=== PATIENT | female | born 1935 | race Caucasian/White ===

== ENCOUNTER 2018-10-05 14:01 | Outpatient (CLI) | payer MEDICARE ==
[2018-10-05] MEDS ORDERED: LIDOCAINE 1%-EPI 1:100K, 20ML ONE (16:30)
[2018-10-05] MEDS ORDERED: SODIUM BICARBONATE 4.0%, 5ML ONE (16:30)
[2018-11-09] MEDS ORDERED: ATOR20TA37 PO (10:33)
[2018-11-09] MEDS ORDERED: LORA1TAB PO (10:33)
[2018-11-09] MEDS ORDERED: CITA40TA5 PO (10:33)
[2018-11-09] MEDS ORDERED: CARV3.122 PO (10:33)
[2018-11-09] MEDS ORDERED: LOSA25TA25 PO (10:49)
== END 2018-10-05 23:59 | disposition home or self-care (01) ==
LOC: MERGE 14:01 → CFH 14:01
PROVIDERS: ATTEND Family Medicine
DX: C50.912 Malignant neoplasm of unspecified site of left female breast (principal)
CPT/HCPCS: 19083; 19084; 76641; 77066; 88305; 88341; 88342; 88360; G0279; J3490; 19285; 76942; 88361; 77065

== ENCOUNTER → 2018-12-08 | Outpatient (CLI) | payer MEDICARE ==
[~2018-12-08] MED LIST: ATOR20TA37 PO; CARV3.122 PO; CITA40TA5 PO; LORA1TAB PO; LOSA25TA25 PO
== END | disposition home or self-care (01) ==
LOC: PETCFH 10:44 → MERGE 12:30
PROVIDERS: ATTEND Internal Medicine Hematology & Oncology
DX: C79.51 Secondary malignant neoplasm of bone (principal); M81.0 Age-related osteoporosis without current pathological fracture; C50.812 Malignant neoplasm of overlapping sites of left female breast
CPT/HCPCS: 77080; 78306; A9503

== ENCOUNTER → 2018-12-09 | Outpatient (CLI) | payer MEDICARE | END | disposition home or self-care (01) | LOC: ROC 09:28 → MERGE 06-20 11:41 | PROVIDERS: ATTEND Radiology Radiation Oncology | DX: Z08 Encounter for follow-up examination after completed treatment for malignant neoplasm (principal); Z85.3 Personal history of malignant neoplasm of breast | CPT/HCPCS: 99214; G0463 ==

== ENCOUNTER → 2018-12-12 | Outpatient (CLI) | payer MEDICARE ==
[~2018-12-12] MED LIST changes: +OMNIPAQUE 350 MG/ML, 100ML BOTTLE ONE
== END | disposition home or self-care (01) ==
LOC: CFH 12:22
PROVIDERS: ATTEND Internal Medicine Hematology & Oncology
DX: C50.812 Malignant neoplasm of overlapping sites of left female breast (principal)
CPT/HCPCS: 71260; 74177; Q9967

== ENCOUNTER 2018-12-19 07:40 | Day surgery (SDC) | payer MEDICARE ==
[~2018-12-19] VITALS: Ht 149.9 cm; Wt 64.6 kg
[~2018-12-19 07:40] MED LIST changes: -OMNIPAQUE 350 MG/ML, 100ML BOTTLE ONE
[2018-12-19 08:43] VITALS: BP 168/71
[2018-12-19] MEDS ORDERED: SODIUM CHLORIDE 0.9% 1,000 ML IV SCH (08:48)
[2018-12-19] MEDS ORDERED: FLUMAZENIL 0.1 MG/1 ML, 5ML ONE (09:24)
[2018-12-19] MEDS ORDERED: MIDAZOLAM 1 MG/ML, 5ML ONE (09:24)
[2018-12-19] MEDS ORDERED: FENTANYL PF 100 MCG/2ML ONE (09:24)
[2018-12-19] MEDS ORDERED: NALOXONE 1 MG/ML, 2ML ONE (09:25)
== END 2018-12-19 11:10 | disposition home or self-care (01) ==
LOC: RAD 07:40 → OUT 11:10
PROVIDERS: ATTEND Internal Medicine Hematology & Oncology
DX: C50.812 Malignant neoplasm of overlapping sites of left female breast (principal); C79.51 Secondary malignant neoplasm of bone; I10 Essential (primary) hypertension; Z88.6 Allergy status to analgesic agent; Z87.891 Personal history of nicotine dependence; Z98.890 Other specified postprocedural states
CPT/HCPCS: 20225; 77012; 88307; 88311; 99156; 99157; J2250; J3010; J7030; J2310

== ENCOUNTER → 2018-12-20 | Outpatient (CLI) | payer MEDICARE ==
[~2018-12-20] MED LIST changes: +GADOBUTROL 7.5 MMOL/7.5 ML PFS ONE
== END | disposition home or self-care (01) ==
LOC: CFH 09:35
PROVIDERS: ATTEND Internal Medicine Hematology & Oncology
DX: C79.51 Secondary malignant neoplasm of bone (principal); C50.812 Malignant neoplasm of overlapping sites of left female breast; M48.54XA Collapsed vertebra, not elsewhere classified, thoracic region, initial encounter for fracture; M25.78 Osteophyte, vertebrae; M51.24 Other intervertebral disc displacement, thoracic region
CPT/HCPCS: 72157; A9585

== ENCOUNTER 2018-12-23 08:04 | Outpatient (CLI) | payer MEDICARE | END 2018-12-23 23:59 | disposition home or self-care (01) | LOC: ROC 08:04 | PROVIDERS: ATTEND Radiology Radiation Oncology | DX: C79.51 Secondary malignant neoplasm of bone (principal) | CPT/HCPCS: 99213; G0463 ==

== ENCOUNTER → 2018-12-23 | Outpatient (CLI) | payer MEDICARE ==
[~2018-12-23] MED LIST changes: -GADOBUTROL 7.5 MMOL/7.5 ML PFS ONE
== END | disposition home or self-care (01) ==
LOC: CFH 11:26
PROVIDERS: ATTEND Internal Medicine Hematology & Oncology
DX: C79.51 Secondary malignant neoplasm of bone (principal); C50.812 Malignant neoplasm of overlapping sites of left female breast; M19.012 Primary osteoarthritis, left shoulder; M85.88 Other specified disorders of bone density and structure, other site

== ENCOUNTER 2019-01-09 10:07 | Inpatient (IN) | payer MEDICARE ==
[~2019-01-09] VITALS: Ht 147.3 cm; Wt 62.0 kg
[2019-01-13 13:21] VITALS: BP 102/63
== END 2019-01-13 17:46 | disposition home health service (06) | DRG 542 ==
LOC: ED 11:38 → EDIP 12:43 → 3NW 13:57
PROVIDERS: ADMIT Internal Medicine; ATTEND Internal Medicine
PROC: 0T9B70Z Drainage of Bladder with Drainage Device, Via Natural or Artificial Opening (ICD-10-PCS; principal; 2019-01-09)
DX: M84.58XA Pathological fracture in neoplastic disease, other specified site, initial encounter for fracture (principal); J96.01 Acute respiratory failure with hypoxia; C79.51 Secondary malignant neoplasm of bone; K56.49 Other impaction of intestine; C50.919 Malignant neoplasm of unspecified site of unspecified female breast; K59.09 Other constipation; K64.9 Unspecified hemorrhoids; E78.00 Pure hypercholesterolemia, unspecified; M51.36 Other intervertebral disc degeneration, lumbar region; D72.829 Elevated white blood cell count, unspecified; E78.5 Hyperlipidemia, unspecified; M48.061 Spinal stenosis, lumbar region without neurogenic claudication; E83.51 Hypocalcemia; I70.0 Atherosclerosis of aorta; R33.9 Retention of urine, unspecified; I10 Essential (primary) hypertension; Z90.710 Acquired absence of both cervix and uterus; Z88.5 Allergy status to narcotic agent; Z85.3 Personal history of malignant neoplasm of breast; Z87.891 Personal history of nicotine dependence
CPT/HCPCS: 36415; 70450; 71045; 72131; 74018; 77336; 77387; 77412; 80048; 81003; 82040; 82306; 83605; 85025; 87040; 87086; 93005; 96360; G0378; J1170; J1650; J1885; J0360; J7030

== ENCOUNTER 2019-01-23 13:01 | Outpatient (CLI) | payer MEDICARE | END 2019-01-23 23:59 | disposition home or self-care (01) | LOC: CFH 13:01 | PROVIDERS: ATTEND Internal Medicine Hematology & Oncology | DX: C79.51 Secondary malignant neoplasm of bone (principal); C50.812 Malignant neoplasm of overlapping sites of left female breast | CPT/HCPCS: 71046 ==

== ENCOUNTER 2019-01-24 20:00 | Inpatient (IN) | payer MEDICARE ==
[~2019-01-24] VITALS: Ht 147.3 cm; Wt 65.7 kg
[2019-02-01 14:00] VITALS: BP 150/85
== END 2019-02-01 16:15 | disposition home health service (06) | DRG 492 ==
LOC: ED 21:39 → EDIP 21:56 → 3NW 22:47
PROVIDERS: ADMIT Internal Medicine; ATTEND Internal Medicine
PROC: 0PHF06Z Insertion of Intramedullary Internal Fixation Device into Right Humeral Shaft, Open Approach (ICD-10-PCS; principal; 2019-01-27)
DX: C79.51 Secondary malignant neoplasm of bone (principal); E43 Unspecified severe protein-calorie malnutrition; E87.0 Hyperosmolality and hypernatremia; J98.11 Atelectasis; M48.54XA Collapsed vertebra, not elsewhere classified, thoracic region, initial encounter for fracture; C50.919 Malignant neoplasm of unspecified site of unspecified female breast; D63.8 Anemia in other chronic diseases classified elsewhere; E78.00 Pure hypercholesterolemia, unspecified; E78.5 Hyperlipidemia, unspecified; E83.42 Hypomagnesemia; E87.6 Hypokalemia; I10 Essential (primary) hypertension; K20.8 Other esophagitis; K59.00 Constipation, unspecified; K64.9 Unspecified hemorrhoids; R13.10 Dysphagia, unspecified; R32 Unspecified urinary incontinence; T66.XXXA Radiation sickness, unspecified, initial encounter; Y84.2 Radiological procedure and radiotherapy as the cause of abnormal reaction of the patient, or of later complication, without mention of misadventure at the time of the procedure; Z51.5 Encounter for palliative care; Z66 Do not resuscitate; Z40.8 Encounter for other prophylactic surgery; Z80.1 Family history of malignant neoplasm of trachea, bronchus and lung; Z87.891 Personal history of nicotine dependence; Z90.710 Acquired absence of both cervix and uterus; Z92.3 Personal history of irradiation; Z68.30 Body mass index [BMI] 30.0-30.9, adult
CPT/HCPCS: 36415; 71045; 74018; 74230; 76000; 80048; 80053; 81003; 83540; 83550; 83605; 83735; 84134; 84145; 84443; 85025; 87040; 88305; 99285; C1713; G0378; J0690; J1100; J1170; J1650; J2405; J2704; J3010; J0330; J2060; J3475; J7030

== ENCOUNTER 2019-02-24 07:57 | Outpatient (CLI) | payer MEDICARE ==
[~2019-02-24 07:57] MED LIST changes: +ACID1TAB7 PO; +ALPR0.25 PO; +ALPR0.5T PO; +DEXA0.5D PO; +ERGO500017 PO; +FENT1PAT74 TD; +HYDR25SU3 PR; +LACT10SO5 PO; +LETR2.5T PO; +LIDO700A20 TD; +NYST1000 PO; +ONDA4TAB7 PO; +OXYC5TAB3 PO; +PHEN1SUP77 PR; +POLY17PO5 PO; +POTA20TA6 PO; +SENN1TAB94 PO; +SUCR1ORA5 PO; +Tamsulosin PO; +magic mouth wash
== END 2019-02-24 23:59 | disposition home or self-care (01) ==
LOC: ROC 07:57 → EDSTATUS 06-20 18:00
PROVIDERS: ATTEND Radiology Radiation Oncology
DX: C79.51 Secondary malignant neoplasm of bone (principal); C50.412 Malignant neoplasm of upper-outer quadrant of left female breast
CPT/HCPCS: 77387; 99213; G0463

== ENCOUNTER → 2019-08-15 | Outpatient (CLI) | payer MEDICARE ==
[~2019-08-15] MED LIST changes: +LACT10SO24 PO; -LACT10SO5 PO; -LETR2.5T PO; +LETR2.5T3 PO; +OMNIPAQUE 350 MG/ML, 100ML BOTTLE ONE
== END | disposition home or self-care (01) ==
LOC: PETCFH 07:55
PROVIDERS: ATTEND Internal Medicine Hematology & Oncology
DX: C50.812 Malignant neoplasm of overlapping sites of left female breast (principal); C79.51 Secondary malignant neoplasm of bone; M48.54XA Collapsed vertebra, not elsewhere classified, thoracic region, initial encounter for fracture; M40.293 Other kyphosis, cervicothoracic region; M47.816 Spondylosis without myelopathy or radiculopathy, lumbar region; K76.0 Fatty (change of) liver, not elsewhere classified; K57.30 Diverticulosis of large intestine without perforation or abscess without bleeding; K42.9 Umbilical hernia without obstruction or gangrene; I70.0 Atherosclerosis of aorta; I31.3 Pericardial effusion (noninflammatory); M89.9 Disorder of bone, unspecified; N28.1 Cyst of kidney, acquired; I86.2 Pelvic varices
CPT/HCPCS: 71260; 74177; 78306; A9503; Q9967

== ENCOUNTER → 2019-11-16 | Outpatient (CLI) | payer MEDICARE | END | disposition home or self-care (01) | LOC: RAD 09:35 | PROVIDERS: ATTEND Internal Medicine Hematology & Oncology | DX: C50.812 Malignant neoplasm of overlapping sites of left female breast (principal); C79.51 Secondary malignant neoplasm of bone; R50.9 Fever, unspecified; G89.3 Neoplasm related pain (acute) (chronic); K12.33 Oral mucositis (ulcerative) due to radiation; F06.4 Anxiety disorder due to known physiological condition; R97.8 Other abnormal tumor markers; Z79.899 Other long term (current) drug therapy | CPT/HCPCS: 71260; 74177; 78306; 82565; A9503; Q9967 ==

== ENCOUNTER → 2020-03-14 | Outpatient (CLI) | payer MEDICARE | END | disposition home or self-care (01) | LOC: CFH 09:28 | PROVIDERS: ATTEND Internal Medicine Hematology & Oncology | DX: C79.51 Secondary malignant neoplasm of bone (principal); C50.812 Malignant neoplasm of overlapping sites of left female breast; K76.0 Fatty (change of) liver, not elsewhere classified; N28.1 Cyst of kidney, acquired | CPT/HCPCS: 71260; 74177; 78306; A9503; Q9967 ==

== ENCOUNTER → 2020-11-27 | Outpatient (CLI) | payer MEDICARE ==
[~2020-11-27] MED LIST changes: +GADOTERATE 7.5 MMOL/15ML SYR ONE; -OMNIPAQUE 350 MG/ML, 100ML BOTTLE ONE; -OXYC5TAB3 PO; +OXYC5TAB98 PO
== END | disposition home or self-care (01) ==
LOC: CFH 11:00
PROVIDERS: ATTEND Radiology Radiation Oncology
DX: C79.51 Secondary malignant neoplasm of bone (principal); C50.412 Malignant neoplasm of upper-outer quadrant of left female breast; M48.07 Spinal stenosis, lumbosacral region; M51.36 Other intervertebral disc degeneration, lumbar region; M47.816 Spondylosis without myelopathy or radiculopathy, lumbar region
CPT/HCPCS: 72158; A9575

== ENCOUNTER → 2020-11-27 | Outpatient (CLI) | payer MEDICARE ==
[~2020-11-27] MED LIST changes: -GADOTERATE 7.5 MMOL/15ML SYR ONE
== END | disposition home or self-care (01) ==
LOC: ROC 09:18
PROVIDERS: ATTEND Radiology Radiation Oncology
DX: C50.412 Malignant neoplasm of upper-outer quadrant of left female breast (principal); C79.51 Secondary malignant neoplasm of bone
CPT/HCPCS: 99212; G0463